=== PATIENT | female | born 1945 | race Caucasian/White ===

== ENCOUNTER 2025-04-05 15:03 | Inpatient (IN) | payer MEDICARE, OTHER ==
[~2025-04-05] VITALS: Ht 160 cm; Wt 99.5 kg
[~2025-04-05 15:03] MED LIST: MERO1VIA23 IV; POVI1MED TP
[2025-04-05] MEDS ORDERED: ONDANSETRON HCL/PF 4 MG/2 ML VIAL ONE (15:29)
[2025-04-05] MEDS: IV NS 0.9% 1,000 ML BAG IV ONE (15:41)
[2025-04-05] MEDS: ONDANSETRON HCL/PF 4 MG/2 ML VIAL IVP ONE (15:42)
[2025-04-05] MEDS: PANTOPRAZOLE 80 MG in IV NS 0.9% 100 ML IV ONE (15:53)
[2025-04-05 15:56] LABS: PLATELET COUNT (AUTO) 288 K/uL (150-450); RED BLOOD CELL COUNT(AUTO) 4.32 MIL/uL (4.0-5.2); RED CELL DISTRIBUTION WIDTH 18.3 % (11.5-15.0); WHITE BLOOD COUNT (AUTO) 7.1 K/uL (4.3-11.0)
[2025-04-05 16:03] LABS: CALCIUM, SERUM 9.1 mg/dL (8.5-10.1); CREATININE 1.0 mg/dL (0.6-1.3); SODIUM SERUM 140 mmol/L (136-145); UREA NITROGEN, BLOOD 28 mg/dL (7-18)
[2025-04-05 16:08] LABS: ASPARTATE AMINOTRANSFERASE 24 U/L (15-37); TOTAL PROTEIN, SERUM 6.8 g/dL (6.4-8.2)
[2025-04-05 16:09] LABS: INR 1.03 (0.91-1.10)
[2025-04-05] MEDS: PANTOPRAZOLE 80 MG in IV NS 0.9% 500 ML IV ONE (16:25)
[2025-04-05] MEDS ORDERED: ESCI20TA PO (16:33)
[2025-04-05] MEDS ORDERED: ZINC56.713 TP (16:33)
[2025-04-05] MEDS ORDERED: PREG-57 PO (16:33)
[2025-04-05] MEDS ORDERED: ACET325T53 PO (16:33)
[2025-04-05] MEDS ORDERED: DULO20CA PO (16:33)
[2025-04-05] MEDS ORDERED: POLY17PO4 PO (16:33)
[2025-04-05] MEDS ORDERED: BUDE0.25 IH (16:33)
[2025-04-05] MEDS ORDERED: METO50TA16 PO (16:33)
[2025-04-05] MEDS ORDERED: OXYC-117 PO (16:33)
[2025-04-05] MEDS ORDERED: FERR325T23 PO (16:33)
[2025-04-05] MEDS ORDERED: LEVA0.6320 IH (16:33)
[2025-04-05] MEDS ORDERED: BISA10SU11 RC (16:33)
[2025-04-05] MEDS ORDERED: TRAZ-182 PO (16:33)
[2025-04-05] MEDS ORDERED: BUSP10TA3 PO (16:33)
[2025-04-05] MEDS ORDERED: GABA300C PO (16:33)
[2025-04-05] MEDS ORDERED: ATOR40TA PO (16:33)
[2025-04-05] MEDS ORDERED: LANS30CA56 PO (16:33)
[2025-04-05] MEDS ORDERED: CALC-494 PO (16:33)
[2025-04-05] MEDS ORDERED: FOLI0.4T6 PO (16:33)
[2025-04-05] MEDS ORDERED: FLEC50TA2 PO (16:33)
[2025-04-05 17:07] LABS: APPEARANCE,URINE CLEAR (CLEAR); BLOOD, URINE NEGATIVE Ery/uL (NEGATIVE); LEUKOCYTE ESTERASE ,URINE NEGATIVE (NEGATIVE); NITRITE, URINE NEGATIVE (NEGATIVE); UGLUCOSE NEGATIVE (NEGATIVE)
[2025-04-05] MEDS ORDERED: MAGNESIUM HYDROXIDE 30 ML UDC PO PRN (19:30)
[2025-04-05] MEDS ORDERED: BISACODYL SUPP (10 MG) 10 MG/SUPP.RECT SUPP.RECT RC PRN (19:30)
[2025-04-05] MEDS ORDERED: POLYETHYLENE GLYCOL 3350 17 GM POWD.PACK PO PRN (19:30)
[2025-04-05] MEDS ORDERED: ACETAMINOPHEN 325 MG TABLET PO PRN (19:30)
[2025-04-05] MEDS ORDERED: Z GUARD REMEDY 4 OZ OINT TP PRN (19:30)
[2025-04-05] MEDS ORDERED: ONDANSETRON HCL/PF 4 MG/2 ML VIAL IVP PRN (19:30)
[2025-04-05] MEDS ORDERED: MAG HYDROX/AL HYDROX/SIMETH 30 ML UDC PO PRN (19:30)
[2025-04-05 20:05] VITALS: BP_SYST 131; BP_SYST 135; BP_DIAS 65; BP_DIAS 92; TEMP 98.2; TEMP 98.6; O2SAT 100; O2SAT 98
[2025-04-05] MEDS: MEROPENEM 1 G VIAL IV SCH (21:10)
[2025-04-05] MEDS: IV NS 0.9% 1,000 ML IV PRN (21:10)
[2025-04-05] MEDS ORDERED: MEROPENEM 1 G VIAL IV ONE (21:40)
[2025-04-05] MEDS: PREGABALIN 25 MG CAPSULE PO SCH (22:00)
[2025-04-05] MEDS: ATORVASTATIN 40 MG TABLET PO SCH (22:00)
[2025-04-05] MEDS: TRAZODONE 50 MG TABLET PO SCH (22:00)
[2025-04-05] MEDS: MEROPENEM 1 G in IV NS 0.9% 100 ML IV ONE (22:01)
[2025-04-06] VITALS (15 sets, daily range): BP systolic 111–129; BP diastolic 54–64; TEMP 97.3–98.2; O2SAT 95–99
[2025-04-06 07:51] LABS: PLATELET COUNT (AUTO) 200 K/uL (150-450); RED BLOOD CELL COUNT(AUTO) 4.07 MIL/uL (4.0-5.2); RED CELL DISTRIBUTION WIDTH 19.0 % (11.5-15.0); WHITE BLOOD COUNT (AUTO) 4.9 K/uL (4.3-11.0)
[2025-04-06] MEDS: DULOXETINE HCL 20 MG CAPSULE.DR PO SCH (08:25)
[2025-04-06] MEDS: FOLIC ACID 1 MG TABLET PO SCH (08:25)
[2025-04-06] MEDS: FERROUS SULFATE (325 MG) 325 MG/TAB TABLET PO SCH (08:25)
[2025-04-06] MEDS: ESCITALOPRAM OXALATE (10 MG) 10 MG TABLET PO SCH (08:25)
[2025-04-06] MEDS: FLECAINIDE ACETATE 50 MG TABLET PO SCH (08:26)
[2025-04-06] MEDS: GABAPENTIN 300 MG CAPSULE PO SCH (08:26)
[2025-04-06] MEDS: CALCIUM CARBONATE (1250) 500 MG TABLET PO SCH (08:26)
[2025-04-06] MEDS: METOPROLOL TARTRATE 50 MG TABLET PO SCH (08:27)
[2025-04-06] MEDS: PANTOPRAZOLE 40 MG VIAL IV SCH (08:30)
[2025-04-06] MEDS: MEROPENEM 1 G in IV NS 0.9% 100 ML IV SCH ×2 (08:40→20:55)
[2025-04-06] MEDS: BUDESONIDE RESPULE INH 0.25 MG/2 ML AMPUL.NEB IH SCH (09:00)
[2025-04-06] MEDS: ALBUTEROL HALF STRENGTH 1.25 MG/3 ML VIAL.NEB IH SCH (09:45)
[2025-04-06] MEDS: FLECAINIDE ACETATE (100 MG) 100 MG TABLET PO SCH (18:06)
[2025-04-06 21:31] LABS: ASPARTATE AMINOTRANSFERASE 22.0 U/L (15-37); CREATININE 0.7 mg/dL (0.6-1.3); PHOSPHORUS 2.2 mg/dL (2.5-4.9); SODIUM SERUM 145.0 mmol/L (136-145); TOTAL PROTEIN, SERUM 5.5 g/dL (6.4-8.2); UREA NITROGEN, BLOOD 12.0 mg/dL (7-18)
[2025-04-06 21:37] LABS: CALCIUM, SERUM 8.3 mg/dL (8.5-10.1)
[2025-04-07] VITALS (10 sets, daily range): BP systolic 88–112; BP diastolic 42–53; TEMP 97.5–98.4; O2SAT 97–100
[2025-04-07 06:25] LABS: PLATELET COUNT (AUTO) 241 K/uL (150-450); RED BLOOD CELL COUNT(AUTO) 4.03 MIL/uL (4.0-5.2); RED CELL DISTRIBUTION WIDTH 18.1 % (11.5-15.0); WHITE BLOOD COUNT (AUTO) 4.4 K/uL (4.3-11.0)
[2025-04-07 06:40] LABS: CALCIUM, SERUM 8.7 mg/dL (8.5-10.1); CREATININE 0.7 mg/dL (0.6-1.3); PHOSPHORUS 2.8 mg/dL (2.5-4.9); SODIUM SERUM 147.0 mmol/L (136-145); UREA NITROGEN, BLOOD 10.0 mg/dL (7-18)
[2025-04-07 14:17] LABS: IRON, SERUM 36 ug/dl (50-175)
[2025-04-07] MEDS: PANTOPRAZOLE 40 MG/PACK PACK PO SCH (22:32)
[2025-04-08] VITALS (7 sets, daily range): BP systolic 119; BP diastolic 57; TEMP 97.7–98.4; O2SAT 90–100
[2025-04-08 07:41] LABS: PLATELET COUNT (AUTO) 229 K/uL (150-450); RED BLOOD CELL COUNT(AUTO) 3.95 MIL/uL (4.0-5.2); RED CELL DISTRIBUTION WIDTH 18.0 % (11.5-15.0); WHITE BLOOD COUNT (AUTO) 6.0 K/uL (4.3-11.0)
[2025-04-08] MEDS: BUDESONIDE RESPULE INH 0.25 MG/2 ML AMPUL.NEB IH SCH (10:26)
[2025-04-08] MEDS: ACETAMINOPHEN 325 MG TABLET PO PRN (12:26)
== END 2025-04-08 16:26 | DRG 378 ==
LOC: ER 15:07 → TELE 19:30 → MED 20:00
PROVIDERS: ADMIT Nurse Practitioner Acute Care
DX: K92.2 Gastrointestinal hemorrhage, unspecified (principal); E44.0 Moderate protein-calorie malnutrition; I48.20 Chronic atrial fibrillation, unspecified; I10 Essential (primary) hypertension; M19.90 Unspecified osteoarthritis, unspecified site; J45.909 Unspecified asthma, uncomplicated; G47.33 Obstructive sleep apnea (adult) (pediatric); E78.5 Hyperlipidemia, unspecified; E66.9 Obesity, unspecified; D63.8 Anemia in other chronic diseases classified elsewhere; G89.29 Other chronic pain; Z99.81 Dependence on supplemental oxygen; Z68.38 Body mass index [BMI] 38.0-38.9, adult; Z79.899 Other long term (current) drug therapy; E88.09 Other disorders of plasma-protein metabolism, not elsewhere classified; Z71.3 Dietary counseling and surveillance; Z87.440 Personal history of urinary (tract) infections
CPT/HCPCS: 36415; 71045-TC; 80048-TC; 80053-TC; 80076-TC; 83540-TC; 83690-TC; 83735-TC; 84100-TC; 84484-TC; 85025-TC; 85027-TC; 85730-TC; 86850-TC; 87081-TC; 87086-TC; 94760-TC; 94799-TC; A4223; G0378; J2185; J2405; J2470; J7030